=== PATIENT | male | born 1945 | race Two or more races ===

== ENCOUNTER 2021-11-12 12:23 | Inpatient (IN) | payer OTHER ==
[~2021-11-12] VITALS: Ht 160 cm; Wt 63.5 kg
[2021-11-12] MEDS ORDERED: LISINOPRIL5 MG PO (13:13)
[2021-11-12] MEDS ORDERED: SIMVASTATIN20 MG PO (13:13)
[2021-11-15] MEDS ORDERED: CLONAZEPAM1 MG (16:47)
[2021-11-15] MEDS ORDERED: PANTOPRAZOLE SO40 MG (16:47)
[2021-11-15] MEDS ORDERED: ALPRAZOLAM2 MG (16:47)
[2021-11-15] MEDS ORDERED: FLUOXETINE HCL20 MG (16:47)
== END 2021-11-18 21:43 | disposition home or self-care (01) | DRG 689 ==
LOC: ER 12:23 → ICU-2 11-13 11:59 → ICU 11-13 11:59 → MEDJ 11-15 22:18
PROVIDERS: ADMIT Internal Medicine; ATTEND Internal Medicine
PROC: B24BZZZ Ultrasonography of Heart with Aorta (ICD-10-PCS; 2021-11-13)
PROC: BW28ZZZ Computerized Tomography (CT Scan) of Head (ICD-10-PCS; 2021-11-13)
PROC: BW21YZZ Computerized Tomography (CT Scan) of Abdomen and Pelvis using Other Contrast (ICD-10-PCS; 2021-11-13)
PROC: 4A12X4Z Monitoring of Cardiac Electrical Activity, External Approach (ICD-10-PCS; principal; 2021-11-15)
DX: N39.0 Urinary tract infection, site not specified (principal); R65.21 Severe sepsis with septic shock; R57.1 Hypovolemic shock; N17.8 Other acute kidney failure; N41.0 Acute prostatitis; A04.72 Enterocolitis due to Clostridium difficile, not specified as recurrent; R55 Syncope and collapse; I95.89 Other hypotension; E86.0 Dehydration; E87.8 Other disorders of electrolyte and fluid balance, not elsewhere classified; F41.1 Generalized anxiety disorder

== ENCOUNTER → 2025-03-21 | Emergency (ER) | payer OTHER ==
[~2025-03-21] VITALS: Ht 162.6 cm; Wt 59.0 kg
[~2025-03-21] MED LIST: 0.9 % SODIUM CHLORIDE 1,000 ML IV SCH; ACETAMINOPHEN 500 MG GEL..CAP PO ONE; ALPRAZOLAM2 MG; CLONAZEPAM1 MG; FAMOTIDINE/PF 20 MG in 0.9 % SODIUM CHLORIDE 8 ML IV PUSH ONE; FAMOTIDINE/PF 20 MG/2 ML VIAL ONE; FLUOXETINE HCL20 MG; LISINOPRIL5 MG PO; ORPHENADRINE CI25 GM MC; PANTOPRAZOLE SO40 MG; PROMETHAZINE HCL 50 MG/ML AMPUL IM ONE; SIMVASTATIN20 MG PO; TORADOL60 MG IM
[2025-03-21 17:17] LABS: BASO % 0.1 % (0.1-1.2); EOS # 0.05 (0.04-0.54); EOS % 0.5 % (0.7-7.0); LYMPH # 2.69 (1.18-3.74); LYMPH % 25.5 % (19.3-53.1); MEAN PLATELET VOLUME 9.30 fl (9.4-12.4); MONO # 1.14 (0.24-0.82); MONO % 10.8 % (4.7-12.5); NEUT # 6.61 (1.56-6.13); NEUT % 62.5 % (34.0-71.1); RED CELL DISTRIBUTION WIDTH 12.9 % (11.6-14.4)
[2025-03-21 17:34] LABS: D DIMER 3.18 MG/L
[2025-03-21 17:35] LABS: ERYTHROCYTE SEDIMENTATION RATE 23 mm/hr (0-20); INR 0.98
[2025-03-21 17:39] LABS: URINE APPEARANCE Clear; URINE BILIRRUBIN Negative (NEGATIVE); URINE BLOOD Negative; URINE COLOR Yellow; URINE GLUCOSE Negative (NEGATIVE); URINE KETONE Trace (NEGATIVE); URINE LEUKOCYTE Negative; URINE NITRATE Negative; URINE PROTEIN Trace (NEGATIVE); URINE UROBILINOGEN 0.2 E.U./dl
[2025-03-21 17:42] LABS: ALT/SGPT 19.0 U/L (12-78); AST/SGOT 13.0 U/L (15-37); BILIRUBIN TOTAL 0.56 mg/dL (0.3-1.2); BUN CREA RATIO 17.0 (7.0-25.0); CREATININE SERUM 1.36 mg/dL (0.70-1.30); GFR 50.29; GLOBULINA 4.6 G/DL (2.4-3.5); GLUCOSE FASTING 91.0 mg/dL (65-100); OSMOLALITY SERUM 286.0 MOSM/KG (275-295)
[2025-03-21 17:44] LABS: URINE BACTERIA 13.2 uL (0.0-1933); URINE EPITHELIAL CELLS 1.6 uL (0.0-38.8); URINE RBC 4.5 uL (0.0-20.8); URINE WBC 3.9 uL (0.0-23.2)
[2025-03-21 17:46] LABS: URINE CAST 0.00 uL (0.0-1.40)
== END | disposition left against medical advice (07) ==
LOC: ER 12:52
PROVIDERS: General Practice
DX: R53.1 Weakness (principal); R41.0 Disorientation, unspecified; M25.572 Pain in left ankle and joints of left foot
CPT/HCPCS: 36415; 70450; 73610; 93005; 96365; 99284; J7030